=== PATIENT | female | born 1995 | race Caucasian/White ===

== ENCOUNTER 2017-10-02 16:30 | Inpatient (IN) | payer OTHER ==
[2017-10-02] MEDS ORDERED: DINOPROSTONE 10 MG VAGINAL SUPPOSITORY VG ONE (20:15)
[2017-10-02 20:23] VITALS: BMI 32.4
[2017-10-02] MEDS ORDERED: PROMETHAZINE HCL 25 MG/1 ML VIAL IVPB ONE (20:30)
[2017-10-02] MEDS ORDERED: BUTORPHANOL TARTRATE 1 MG/ML VIAL IVPB ONE (20:30)
[2017-10-02] MEDS ORDERED: DEXTROSE 5%-LACTATED RINGERS 1,000 ML IV SCH (20:30)
[2017-10-02 20:42] LABS: BASO % 0.7 % (0-2.0); EOS % 1.1 % (0-4.5); HEMATOCRIT 35.5 % (32.4-45.2); HEMOGLOBIN 11.8 GM/dL (10.7-15.3); LYMPH % 35.1 % (8-40); MCH 27.8 pg (25.7-33.7); MCHC 33.4 g/dl (32.0-36.0); MEAN CELL VOLUME 83.3 fl (80-96); MEAN PLT VOLUME 8.8 fl (7.5-11.1); NEUT % 58.1 % (42.8-82.8); PLATELET COUNT 249 K/MM3 (134-434); RBC 4.26 M/mm3 (3.60-5.2); RDW 14.2 % (11.6-15.6); WHITE BLOOD COUNT 9.2 K/mm3 (4.0-10.0)
--- NOTE | 2017-10-02 20:45 | HP ---
Past Medical History - Primary Care Physician PCP:: Lesia Lundberg - Admission Chief Complaint: 22 yrs 40.5 weeks admitted for induction of labor as per pt request. sono today BPP8/8, DUNG 12.4 cm, EFW 7'5"(3316 gm) average GA 36.4 weeks. NST reactive History of Present Illness: pnc at [address] [place] [address] . 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 Weeks Gestation by Dates: 40.4 ...EDC by Dates: 09/27/17 (40.5 weeks ) ...EDC by Sono: 09/27/17 Heme/Onc: Yes: Anemia Infectious Disease: Yes: Other (quantiferon pos). No: AIDS, HIV, STD's Psych: No: Addictions, Anxiety, Bipolar, Depression, Panic, Psychosis, Schizophrenia Endocrine: No: Diabetes Mellitus, Hyperthyroidism, Hypothyroidism - Past Surgical History Past Surgical History: Yes: None Hx Myomectomy: No Hx Transabdominal Cerclage: No - Smoking History Smoking history: Never smoked Have you smoked in the past 12 months: Yes Aproximately how many cigarettes per day: 3 If you are a former smoker, when did you quit?: July 2012 - Alcohol/Substance Use Hx Alcohol Use: No History of Substance Use: reports: None Home Medications - Allergies Allergies/Adverse Reactions: Allergies Allergy/AdvReac Type Severity Reaction Status Date / Time No Known Allergies Allergy Verified 03/13/13 11:47 - Home Medications Home Medications: Ambulatory Orders Pnv No.95/Ferrous Fum/Folic AC [ Tablet] 1 each PO DAILY 03/13/13 Physical Exam - Maternity Vital Signs: Selected Entries 10/02/17 17:18 Weight 183 lb Selected Entries 10/02/17 10/02/17 21:00 22:00 Temperature 97.6 F Pulse Rate 75 78 Blood Pressure 120/58 106/67 Constitutional: Yes: Well Nourished Eyes: Yes: WNL HENT: Yes: WNL Neck: Yes: WNL Cardiovascular: Yes: WNL, Regular Rate and Rhythm Lungs: Clear to auscultation Breast(s): Yes: WNL. No: Mass - Abdominal Exam/OB Fundal Height: 38 Number of Fetuses: Single Presentation: Vertex Contractions: No Monitor Mode: External Heart Rate (range): 130 Heart Rate Location: [facility] Category: I Accelerations: Uniform Decelerations: None - Vaginal Exam/OB Vaginal Bleediing: No Speculum Exam: No Dilatation (cm): 1-2 cm Effacement (%): 50 Amniotic Membrane Status: Intact Presentation: Vertex/Position Station: -3 - Physical Exam Musculoskeletal: Yes: WNL Extremities: Yes: WNL. No: Calf Tenderness Edema: Yes Edema: LLE: Trace, RLE: Trace Integumentary: Yes: Tattoos Deep Tendon Reflex Grade: Normal +2 ...Motor Strength: WNL Psychiatric: Yes: WNL, Alert, Oriented - Labs Lab Results: Laboratory Tests 10/02/17 10/02/17 10/02/17 20:15 20:15 20:15 WBC 9.2 Hgb 11.8 D Hct 35.5 Plt Count 249 D Neutrophils % 58.1 PT with INR 10.00 INR 0.88 PTT (Actin FS) 26.0 L Sodium 137 Potassium 3.5 Chloride 107 Carbon Dioxide 20 L BUN 7 Creatinine 0.5 L Random Glucose 116 H Problem List - Problems (1) Post term over 40 weeks Code(s): O48.0 - POST-TERM (2) Elective induction of labor planned Code(s): SVZ5315 - Assessment/Plan 22 yrs , 40.5 weeks, gbs neg, , admitted for induction of labor Plan Cervidil inserted at 8.15 PM Aticipate vaginal delivery labor analgesia stadol + phenrgan & or epidural as needed
[2017-10-02 21:08] LABS: ANION GAP 10 (8-16); BLOOD UREA NITROGEN 7 mg/dL (7-18); CALCIUM 8.2 mg/dL (8.5-10.1); CHLORIDE 107 mmol/L (98-107); CO2 20 mmol/L (21-32); CREATININE 0.5 mg/dL (0.55-1.02); GLUCOSE,RANDOM 116 mg/dL (74-106); POTASSIUM 3.5 mmol/L (3.5-5.1); SODIUM 137 mmol/L (136-145)
[2017-10-02] MEDS ORDERED: SODIUM PHOSPHATE/NA BIPHOS 133 ML ENEMA PR ONE (21:15)
[2017-10-02 21:23] LABS: INR 0.88 (0.82-1.09)
[2017-10-03] MEDS ORDERED: BUTORPHANOL TARTRATE 1 MG/ML VIAL ONE ×2 (01:46)
[2017-10-03] MEDS ORDERED: PROMETHAZINE HCL 25 MG/1 ML VIAL ONE (01:47)
[2017-10-03] MEDS ORDERED: OXYTOCIN 20 UNITS in 0.9% NS 20 UNIT/1,000 ML INFUS.BAG IV ONE ×2 (04:58→05:15)
--- NOTE | 2017-10-03 04:58 | PN ---
Progress Note, Labor Vaginal Exam #1 Labor Exam Date: 10/03/17 Labor Exam Time: 04:50 Heart Rate (range): 130-90 Dilatation: 7 Effacement (%): 90 Amniotic Membrane Status: Intact Presentation: Vertex/Position Station: -1 Remarks: variable decels , fhr cat-2. uc q2-3 min 1.50 AM Stadol 2 mg + Phenrgan 25 mg Iv stat. 4.18 AM Cervidil removed 4.55 AM SROM ,Clear Fluid , moderate amount , Fully dilated , Vx +1 station 5.02 AM , Baby Girl LEONELA, 9/9 5.10 AM Placenta Delivery Selected Entries 10/03/17 10/03/17 02:00 04:00 Temperature 97.9 F Pulse Rate 80 70 Blood Pressure 117/70 116/75
[2017-10-03] MEDS ORDERED: WITCH HAZEL 50% (TUCKS) 40 PAD/JAR PAD TP PRN (05:25)
[2017-10-03] MEDS ORDERED: BENZOCAINE 28 GM HEMORRHOIDAL OINTMENT TP PRN (05:25)
[2017-10-03] MEDS ORDERED: oxyCODONE HCL 5 MG TABLET PO PRN (05:25)
[2017-10-03] MEDS ORDERED: BENZOCAINE 20% 57 GM BOTTLE TP PRN (05:25)
[2017-10-03] MEDS ORDERED: METHYLERGONOVINE MALEATE 0.2 MG/1 ML AMP IM PRN (05:25)
[2017-10-03] MEDS ORDERED: BISACODYL 10 MG SUPP.RECT RC PRN (05:25)
[2017-10-03] MEDS: IBUPROFEN 600 MG TABLET (FP) PO PRN ×4 (05:30→21:47)
[2017-10-03] MEDS: ACETAMINOPHEN 325 MG TABLET (FP) PO PRN ×4 (05:30→21:47)
--- NOTE | 2017-10-03 05:34 | PN ---
Delivery - Delivery Vaginal Delivery: No Problems, Spontaneous Episiotomy/Laceration: None EBL (cc): 300 Delivery, Single - Stages of Labor Date 1st Stage Initiatied: 10/03/17 Time 1st Stage Initiated: 01:30 Date 2nd Stage Initiated: 10/03/17 Time 2nd Stage Initiated: 04:55 Date of Delivery: 10/03/17 Time of Delivery: 05:02 Date Placenta Delivered: 10/03/17 Time Placenta Delivered: 05:10 Placenta: Yes: Spontaneous, Uterine Exploration - Condition of Wildlife Conservationist/Couples Therapist Present: No Infant Gender: Female Weight: 6 lb 14 oz Position: Left, OA Total Hours ROM (Hrs/Mins): 15 min - 1 Minute Total Score: 9 10 Minutes Total Score: 9 - [place] Feeding Plan Initial Plan: Elected not to breastfeed exclusively throughout hospitalization Remarks - Remarks Remarks: 22 yrs , 40 .5 weeks post term pregn admitted for induction of labor . GBS neg Pnc at 2, [facility] Cervidil inserted at 8.15 PM 10/02/2017 . Intrapartum Iv Stadol 2 Mg + Phergan 25 mg was given for labor analgesia Intrapartum course was uneventful
[2017-10-03] MEDS: PRENATAL VITAMINS W/ FOLIC ACID TABLET (FP) PO SCH (09:16)
[2017-10-03] MEDS: FERROUS SO4 325 MG TABLET (FP) PO SCH ×2 (09:16→17:32)
--- NOTE | 2017-10-04 01:09 | PN ---
Post Progress Note - Subjective Subjective: 22 yo Para 3 status post vaginal delivery, seen and evaluated. Doing well, no complaints. Post Day: 1 Type of Delivery: Vital Signs: Vital Signs Temperature 98.0 F 10/03/17 21:01 Pulse Rate 77 10/03/17 21:01 Respiratory Rate 20 10/03/17 21:01 Blood Pressure 105/63 10/03/17 21:01 O2 Sat by Pulse Oximetry (%) 98 10/03/17 06:37 Breast Exam: Yes: Soft Uterus: Yes: Fundus Firm Abdomen/GI: Yes: Abdomen soft, Tolerating PO Lochia: Yes: Rubra Lochia, amount: Moderate Extremities: Yes: Calves non-tender Perineum: Yes: Intact Activity: Ambulating - Labs Labs: CBC WBC 9.2 K/mm3 (4.0-10.0) 10/02/17 20:15 RBC 4.26 M/mm3 (3.60-5.2) 10/02/17 20:15 Hgb 11.8 GM/dL (10.7-15.3) D 10/02/17 20:15 Hct 35.5 % (32.4-45.2) 10/02/17 20:15 MCV 83.3 fl (80-96) 10/02/17 20:15 MCH 27.8 pg (25.7-33.7) 10/02/17 20:15 MCHC 33.4 g/dl (32.0-36.0) 10/02/17 20:15 RDW 14.2 % (11.6-15.6) 10/02/17 20:15 Plt Count 249 K/MM3 (134-434) D 10/02/17 20:15 MPV 8.8 fl (7.5-11.1) 10/02/17 20:15 Neutrophils % 58.1 % (42.8-82.8) 10/02/17 20:15 Lymphocytes % 35.1 % (8-40) D 10/02/17 20:15 Monocytes % 5.0 % (3.8-10.2) 10/02/17 20:15 Eosinophils % 1.1 % (0-4.5) 10/02/17 20:15 Basophils % 0.7 % (0-2.0) 10/02/17 20:15 Assessment/Plan Status post vaginal delivery Stable Continue routine care
[2017-10-04] MEDS: FERROUS SO4 325 MG TABLET (FP) PO SCH ×2 (08:05→18:12)
[2017-10-04] MEDS: ACETAMINOPHEN 325 MG TABLET (FP) PO PRN ×2 (08:06→19:40)
[2017-10-04] MEDS: IBUPROFEN 600 MG TABLET (FP) PO PRN (08:06)
[2017-10-04 08:41] LABS: BASO % 0.5 % (0-2.0); HEMATOCRIT 29.8 % (32.4-45.2); HEMOGLOBIN 9.5 GM/dL (10.7-15.3); LYMPH % 33.9 % (8-40); MCH 26.9 pg (25.7-33.7); MCHC 31.9 g/dl (32.0-36.0); MEAN CELL VOLUME 84.3 fl (80-96); MEAN PLT VOLUME 8.6 fl (7.5-11.1); NEUT % 59.6 % (42.8-82.8); PLATELET COUNT 203 K/MM3 (134-434); RBC 3.54 M/mm3 (3.60-5.2); RDW 14.9 % (11.6-15.6); WHITE BLOOD COUNT 11.4 K/mm3 (4.0-10.0)
[2017-10-04] MEDS ORDERED: FLU VACC QS2017-18 36MOS UP/PF 60 MCG/0.5 ML SYRINGE IM ONE (10:00)
[2017-10-04] MEDS ORDERED: DIPHTH,PERTUSS(ACELL),TET 0.5 ML DISP.SYRIN IM ONE (10:00)
[2017-10-04] MEDS: PRENATAL VITAMINS W/ FOLIC ACID TABLET (FP) PO SCH (10:52)
--- NOTE | 2017-10-04 10:59 | DS ---
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 chest xray 10/04/17 neg) Gastrointestinal: Yes: WNL ...Rectal Exam: Yes: WNL Renal/: Yes: WNL ....Post : Yes: Uterus firm, Uterus non-tender, Moderate lochia rubra ( perineum intact) Breast(s): Yes: WNL (BF, Breast not engorged) Musculoskeletal: Yes: WNL Extremities: Yes: WNL. No: Calf Tenderness Edema: Yes Edema: LLE: Trace, RLE: Trace Integumentary: Yes: Tattoos Neurological: Yes: WNL, Alert, Oriented ...Motor Strength: WNL Psychiatric: Yes: WNL, Alert, Oriented Labs: CBC, BMP 10/04/17 07:45 10/02/17 20:15 Delivery - Delivery Vaginal Delivery: No Problems, Spontaneous Type of Anesthesia: None Episiotomy/Laceration: None EBL (cc): 300 Delivery, Single - Stages of Labor Date 1st Stage Initiatied: 10/03/17 Time 1st Stage Initiated: 01:30 Date 2nd Stage Initiated: 10/03/17 Time 2nd Stage Initiated: 04:55 Date of Delivery: 10/03/17 Time of Delivery: 05:02 Time Placenta Delivered: 05:10 Placenta: Yes: Spontaneous, Uterine Exploration - Condition of Infant Longitudinal Float Operator/Sliver Handler Present: Keener: Pillo Garcia Infant Gender: Female Weight: 6 lb 14 oz Position: Left, OA Total Hours ROM (Hrs/Mins): 15 min - 1 Minute Total Score: 9 10 Minutes Total Score: 9 - [place] Feeding Plan Initial Plan: Elected not to breastfeed exclusively throughout hospitalization Remarks - Remarks Remarks: 22 yrs , 40 .5 weeks post term pregn admitted for induction of labor . GBS neg Pnc at 2, [facility] Cervidil inserted at 8.15 PM 10/02/2017 . Intrapartum Iv Stadol 2 Mg + Phergan 25 mg was given for labor analgesia Intrapartum course was uneventful . pp course uneventful.. discharge 10/05/17 Discharge Summary Current Active Problems Anemia (Acute) Elective induction of labor planned (Acute) Normal spontaneous vaginal delivery (Acute) Post term over 40 weeks (Acute) Condition: Stable - Instructions Diet, Activity, Other Instructions: Post Instructions DIET: Continue good diet high in protein, calcium, and iron rich foods. Drink at least eight (8) glasses of water daily in addition to other fluids. Regular diet MEDICATIONS: Continue vitamins and iron as previously directed. Motrin and Tylenol may be taken for minor discomfort. ACTIVITY: Mild to moderate exercise may be started in two (2) weeks. Take frequent rest periods. Resume normal activity after six (6) week check up. WOUND CARE OF OPERATIVE SITE: Continue use of perineal bottle until vaginal discharge stops. Keep area clean. Shower daily. Keep abdominal wound dry. Report any drainage or redness to physician. Tub baths, tampons and douches are not permitted for [address] Breast feeding & or Bottle feeding BREAST CARE: (For those that are not breast feeding): If engorgement occurs: Wear tight fitting bra. Take Tylenol or Motrin for pain. Apply cold packs (ice in bags to each breast ) FAMILY PLANNING: There are many control alternatives to pursue and they should be discussed at your first office visit. You may resume sexual activity after your six (6) week check up. (Remember, breast feeding is not a contraceptive) NEXT PHYSICIAN APPOINTMENT: Be certain to call for a six (6) week appointment, unless otherwise directed. Call Clinic or got to Emergency Dept if you have any of the following: Heavy vaginal bleeding Painful urination Leg pain Unusual odor noted to vaginal bleeding High fever Red streaking noted on breast Referrals: Lesia Lundberg MD [Staff Physician] - Disposition: HOME - Home Medications Comprehensive Discharge Medication List: Ambulatory Orders Pnv No.95/Ferrous Fum/Folic AC [ Tablet] 1 each PO DAILY 03/13/13 Acetaminophen [Tylenol .Regular Strength -] 650 mg PO Q3H PRN tablet 10/04/17 Ferrous Sulfate [Feosol] 325 mg PO BIDWM #60 tab 10/04/17 Ibuprofen [Motrin -] 200 mg PO Q4H PRN tablet 10/04/17 Vitamins (Sjr) - 1 tab PO DAILY tablet 10/04/17
[2017-10-04] MEDS: D5W-LR W/ 20 UNITS OXYTOCIN 20 UNIT/1,000 ML INFUS.BAG IV SCH ×2 (18:12→19:36)
[2017-10-04] MEDS ORDERED: SENNOSIDES/DOCUSATE COMBO (SENNA PLUS) TABLET (UD) PO PRN (22:00)
[2017-10-05] MEDS: FERROUS SO4 325 MG TABLET (FP) PO SCH (07:32)
[2017-10-05] MEDS: IBUPROFEN 600 MG TABLET (FP) PO PRN ×2 (07:32→12:45)
[2017-10-05] MEDS: ACETAMINOPHEN 325 MG TABLET (FP) PO PRN ×2 (07:33→12:46)
--- NOTE | 2017-10-05 08:04 | PN ---
Progress Note (short form) - Note Progress Note: ppd 2 doing well, no c/o CBC, BMP 10/04/17 07:45 10/02/17 20:15 Last Vital Signs Temp Pulse Resp BP Pulse Ox 97.9 F 81 18 98/52 98 10/04/17 22:00 10/04/17 22:00 10/04/17 22:00 10/04/17 22:00 10/03/17 06:37 uterus firm, non tender lochia mild , nocalf tenderness plan d/c home, rtc 4 weeks
[2017-10-05] MEDS: PRENATAL VITAMINS W/ FOLIC ACID TABLET (FP) PO SCH (11:26)
[2017-10-05 15:36] VITALS: BP 100/79; PULSE 90; TEMP 98
== END 2017-10-05 14:00 | disposition home or self-care (01) | DRG 560 ==
LOC: JDEL 16:30 → JLDR 19:10 → J3W 10-03 08:21
PROVIDERS: ADMIT Obstetrics & Gynecology; ATTEND Obstetrics & Gynecology
PROC: 10E0XZZ Delivery of Products of Conception, External Approach (ICD-10-PCS; principal; 2017-10-03)
DX: O48.0 Post-term pregnancy (principal); Z3A.40 40 weeks gestation of pregnancy; Z37.0 Single live birth
CPT/HCPCS: 36415; 59409; 71046-TC; 76819-TC; 80048; 85025; 85610; 85730; 86593; 86850; 86900; 86901; 90686; 90715

== ENCOUNTER 2021-06-10 10:21 | Emergency (ER) | payer OTHER ==
[2021-06-10] MEDS ORDERED: ACETAMINOPHEN 325 MG TABLET (FP) PO ONE (10:28)
[2021-06-10 10:32] VITALS: BP 117/67; PULSE 117; TEMP 100.3; BMI 31.8
[2021-06-10] MEDS ORDERED: ACETAMINOPHEN 325 MG TABLET (FP) ONE (10:48)
== END 2021-06-10 11:00 | disposition home or self-care (01) ==
LOC: JER 10:21
DX: R51.9 Headache, unspecified (principal); M79.10 Myalgia, unspecified site; R50.9 Fever, unspecified; Z11.52 Encounter for screening for COVID-19
CPT/HCPCS: 99283-25; C9803; U0003; U0005

== ENCOUNTER 2023-02-18 19:26 | Emergency (ER) | payer OTHER ==
[2023-02-18 19:33] VITALS: BP 150/96; RESP 18; TEMP 98.4; BMI 34.0
[2023-02-18 22:19] VITALS: PULSE 86
== END 2023-02-18 22:20 | disposition home or self-care (01) ==
LOC: JERFT 19:26
DX: M25.521 Pain in right elbow (principal)
CPT/HCPCS: 73070-TC-RT-FY; 84703; 99284-25

== ENCOUNTER 2024-03-11 02:28 | Emergency (ER) | payer SELFPAY ==
[2024-03-11 02:37] VITALS: BP 110/74; PULSE 92; RESP 20; TEMP 99.3; BMI 30.7
[2024-03-11] MEDS ORDERED: IBUPROFEN 400 MG TABLET (FP) PO ONE (02:59)
[2024-03-11] MEDS: IBUPROFEN 400 MG TABLET (FP) PO ONE (03:07)
== END 2024-03-11 03:27 | disposition home or self-care (01) ==
LOC: JER 02:28
DX: H60.93 Unspecified otitis externa, bilateral (principal); R50.9 Fever, unspecified
CPT/HCPCS: 99283-25